=== PATIENT | male | born 1965 | race Caucasian/White ===

== ENCOUNTER 2017-09-15 22:50 | Emergency (ER) | payer SELFPAY ==
--- NOTE | 2017-09-15 23:05 | EDM.PDOC ---
ED HPI GENERAL MEDICAL PROBLEM - General Stated Complaint: PT WOULD LIKE TO BE SEEN Time Seen by Provider: 09/15/17 22:54 - History of Present Illness INITIAL COMMENTS - FREE TEXT/NARRATIVE: HISTORY AND PHYSICAL: History of present illness: Patient 52-year-old male presents with a concern of depressive episode with suicidal ideation he expressed this to hotel personnel who called police he expressed that the police who transported him here to emergency department on arrival here he expresses similar to nursing staff and to myself. He does not have any plan. Review of systems: As per history of present illness and below otherwise all systems reviewed and negative. Past medical history: As per history of present illness and as reviewed below otherwise noncontributory. Surgical history: As per history of present illness and as reviewed below otherwise noncontributory. Social history: No reported history of drug or alcohol abuse. Family history: As per history of present illness and as reviewed below otherwise noncontributory. Physical exam: HEENT: Atraumatic, normocephalic, pupils reactive, negative for conjunctival pallor or scleral icterus, mucous membranes moist, throat clear, neck supple, nontender, trachea midline. Lungs: Clear to auscultation, breath sounds equal bilaterally, chest nontender. Heart: S1S2, regular, negative for clicks, rubs, or JVD. Abdomen: Soft, nondistended, nontender. Negative for masses or hepatosplenomegaly. Negative for costovertebral tenderness. Pelvis: Stable nontender. Genitourinary: Deferred. Rectal: Deferred. Extremities: Atraumatic, negative for cords or calf pain. Neurovascular unremarkable. Neuro: Awake, alert, follows commands moves all extremities limited grossly nonfocal exam Diagnostics: CBC CMP EtOH urine drug screen Therapeutics: IV fluid banana bag bolus Impression: Her 1 depressive episode with suicidal ideation Definitive disposition and diagnosis as appropriate pending reevaluation and review of above. ED ROS GENERAL - Review of Systems Review Of Systems: ROS reveals no pertinent complaints other than HPI. ED EXAM, GENERAL - Physical Exam Exam: See Below (See dictation) Departure - Departure Time of Disposition: 23:06 Disposition: DC/Tfer to Psych Hosp/Unit [facility] Condition: Good Clinical Impression: Depression - Discharge Information
[2017-09-15] MEDS ORDERED: MVI, Adult with Vitamin K 10 ML, Thiamine 100 MG, Folic Acid 1 MG in Sodium Chloride 0.... IV ONE ×4 (23:06)
[2017-09-15 23:44] LABS: ACETAMINOPHEN < 3.0 ug/mL; CHLORIDE,CL 100 mmol/L (98-110); SODIUM,NA 138 mmol/L (136-146)
== END 2017-09-16 01:02 ==
LOC: MW.ED 22:50
DX: F32.9 Major depressive disorder, single episode, unspecified (principal); R45.851 Suicidal ideations
CPT/HCPCS: 80053; 80305; 81001; 83735; 84443; 84481; 85025; 93005; 96365; 99285; G0480; J3411; J7040